=== PATIENT | male | born 1995 | race Caucasian/White ===

== ENCOUNTER 2018-12-29 00:19 | Emergency (ER) | payer OTHER ==
[2018-12-29] MEDS ORDERED: Lidocaine 1% w/Epinephrine 1:100K 20 ML VIAL ONE ×2 (01:08→02:15)
[2018-12-29] MEDS ORDERED: Clindamycin/D5W 600 mg/50 ml Premix Bag ONE (02:24)
[2018-12-29] MEDS ORDERED: Bacitracin Zinc Ointment 30 gm TUBE TOP SCH (03:30)
--- NOTE | 2018-12-29 06:41 | HP ---
CHIEF COMPLAINT: Dog bite. 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 PAST MEDICAL HISTORY: None. PAST SURGICAL HISTORY: None. ALLERGIES: PENICILLIN. MEDICATIONS: None. REVIEW OF SYSTEMS: Noncontributory. PHYSICAL EXAMINATION: The patient has a crescentic laceration of his nasal dorsum as well as a through and through laceration of his left ala. His central lip has a stellate through and through laceration in the majority of the height of the lip. It has multiple flaps. The lower lip is missing approximately one-third of the vermilion centrally. On the left side, there is a laterally based traumatic flap that has been raised that appears pink. The right side has relatively clean edge, where the one-third was avulsed from. Intraorally, just along the attached gingiva, there is an avulsion-type injury of the soft tissue of his chin. ASSESSMENT: Open wounds due to dog bite. PLAN: Repair. PREOPERATIVE DIAGNOSIS: Dog bite to face. POSTOPERATIVE DIAGNOSIS: Dog bite to face. PROCEDURE: 1. Complex repair of face (6 cm, nose). 2. Repair of lip laceration of 75% of the height of the lip (upper lip). Repair of lip for 100% of the height of the left (lower lip). 3. Simple repair of oral mucosa (7 cm). PROCEDURE: Following induction of adequate local anesthesia, patient was prepped and draped in the usual sterile fashion in the supine position. Attention was first turned to the patient's nose. The wounds were thoroughly scrubbed with Betadine and rinsed with saline. Traumatic flap edges were then excised to give a connie cleaner closure. The nasal dorsum was closed in a single layer of 5-0 Prolene buried sutures I used to avoid due to the nature of the injury. The ala was closed with 5-0 Prolene suture for the skin and 5-0 chromic suture intranasally for the mucosa. Attention is then turned to the upper lip. The stellate laceration, nonviable traumatic flaps were trimmed. The stellate pattern was then reapproximated as best could be discerned. There may have been some small portion of the upper lip that was avulsed. The remainder of the fragments were jigsaw together with the skin being closed with 5-0 Prolene suture. A deeper layer of the muscle was done with 4-0 Monocryl suture. Oral mucosa was done with 4-0 chromic suture. Again, all wounds and this wound were thoroughly cleaned with Betadine and rinsed with saline prior to closure. Attention was turned to the lower lip. The lower lip was more precarious due to the large percentage of the lip that was avulsed. I would estimate at least one-third of the lower lip was removed by the dog. The white roll was lined up medially and laterally after the traumatic flap on the left side had been secured. Centrally, skin had to be excised to allow for closure. The muscle layer was closed with 3-0 PDS suture. The oral mucosa was closed with 5-0 chromic suture. The skin was closed with 5-0 Prolene suture. Attention was turned intraorally. There was an avulsion injury of his soft tissue of his chin. This had been ripped off the bone. The muscles were reattached with 4-0 Prolene suture back to the bone. The oral mucosa was closed with interrupted running 5-0 chromic suture. The patient tolerated the procedure well. Job ID: [id number]
--- NOTE | 2019-01-08 06:08 | PQF ---
[facility] POST DISCHARGE CLINICAL DOCUMENTATION IMPROVEMENT CLARIFICATION FORM l Todays Date: 01/05/19 l Patients Name Diogenes Valencia l l Admit Date 12/29/18 l Disch Date 12/29/18 Spike Machine Operator Name Kathya Damaris Iqbal Email: [email or web address] Cell: [phone] To be completed by Spike Machine Operator: Present Clinical Indicators - Signs / Symptoms Results and Location in Medical Record [ ] Documentation of: [ ] [ ] Documentation of: [ ] [ ] Documentation of: [ ] [ ] Documentation of: [ ] [ ] Risks [ ] [ ] [ ] Treatment [ ] Upper lip laceration repair Need laceration repair length for upper lip [ ] [ ] To be completed by Physician: Emmy Vazquez The documentation in this patients record requires clarification to ensure coding compliance and accuracy. Check the appropriate box and include in your discharge summary. [ ] [ ] [ ] [ ] Please check this box if this does not apply to this patient [ ] Unable to determine [ ] Other diagnosis: Review the following information and exercise your independent professional judgment in responding to the clarification. Based upon the clinical findings, risk factors, and treatment, please clarify if you are treating one of the above probable or suspected diagnoses. Physician Signature: Date Time MTDD
== END 2018-12-29 03:42 | disposition home or self-care (01) ==
LOC: ERS 00:19
DX: S01.511A Laceration without foreign body of lip, initial encounter (principal); F17.210 Nicotine dependence, cigarettes, uncomplicated; W54.0XXA Bitten by dog, initial encounter
CPT/HCPCS: 12053; 13152; 13153; 96365; 96366; 96367; J1956; J2001; J3490